=== PATIENT | female | born 1990 | race Caucasian/White ===

== ENCOUNTER 2017-12-27 05:06 | Inpatient (IN) | payer BC ==
[~2017-12-27] VITALS: Ht 162.6 cm; Wt 94.8 kg
[2017-12-27] VITALS (10 sets, daily range): BP systolic 106–114; BP diastolic 54–72; PULSE 72–93; RESP 16–20; TEMP 98–98.5; O2SAT 97–100
[2017-12-27] MEDS ORDERED: PREN1PAK9 (05:40)
[2017-12-27] MEDS ORDERED: FERR325T18 PO (05:42)
[2017-12-27] MEDS ORDERED: PROZ20CA11 PO (05:42)
[2017-12-27] MEDS ORDERED: LACTATED RINGER'S 1000 ML IV ONE (05:45)
[2017-12-27] MEDS ORDERED: ceFAZolin 2 GM PREMIX 50 ML IV SCH (05:45)
[2017-12-27] MEDS ORDERED: CITRIC ACID-SODIUM CITRATE LIQ 30 ML UDC PO SCH (05:45)
[2017-12-27 06:15] LABS: AUTOMATED NEUTROPHIL # 6.4 TH/MM3 (1.8-7.7); BASOPHIL # 0.1 TH/MM3 (0-0.2); BASOPHIL % 0.9 % (0.0-2.0); EOSINOPHIL # 0.2 TH/MM3 (0-0.4); EOSINOPHIL % 1.9 % (0.0-4.0); HEMATOCRIT 28.7 % (35.0-46.0); HEMOGLOBIN 9.3 GM/DL (11.6-15.3); LYMPH % 26.8 % (9.0-44.0); LYMPHOCYTE # 2.7 TH/MM3 (1.0-4.8); MEAN CELL VOLUME 78.2 FL (80.0-100.0); MEAN CORPUSCULAR HEMOGLOBIN 25.3 PG (27.0-34.0); MEAN CORPUSCULAR HGB CONC 32.4 % (32.0-36.0); MEAN PLATELET VOLUME 9.9 FL (7.0-11.0); MONOCYTE # 0.8 TH/MM3 (0-0.9); NEUT % 62.4 % (16.0-70.0); PLATELET COUNT 191 TH/MM3 (150-450); RED BLOOD COUNT 3.67 MIL/MM3 (4.00-5.30); RED CELL DISTRIBUTION WIDTH 16.8 % (11.6-17.2); WHITE BLOOD COUNT 10.2 TH/MM3 (4.0-11.0)
[2017-12-27 06:16] LABS: BACTERIA, URINE RARE /hpf; BILIRUBIN, URINE NEG (NEG); BLOOD, URINE NEG (NEG); GLUCOSE,URINE NEG (NEG); KETONE, URINE 10 mg/dL (NEG); MUCUS URINE FEW /lpf (OCC); NITRITE,URINE NEG (NEG); PH, URINE 6.5 (5.0-8.5); SQUAMOUS EPITHELIAL CELL URINE 2 /hpf (0-5); TRANSITIONAL EPI CELLS, URINE <1 /hpf; URINE COLOR YELLOW (YELLW/STRAW); URINE LEUKOCYTE ESTERASE TRACE (NEG)
[2017-12-27] MEDS: LACTATED RINGER'S 1000 ML IV SCH ×2 (06:54→19:05)
[2017-12-27] MEDS ORDERED: ACETAMINOPHEN 1000 MG/100 ML 100 ML IV ONE (07:30)
[2017-12-27] MEDS ORDERED: SODIUM CHLORIDE 0.9% FLUSH 10 ML FLUSH IV FLUSH PRN (08:00)
[2017-12-27] MEDS ORDERED: KETOROLAC TROMETHAMINE 60 MG/2 ML (IM) VIAL IM PRN (08:00)
[2017-12-27] MEDS ORDERED: IBUPROFEN 600 MG TAB PO PRN (08:00)
[2017-12-27] MEDS ORDERED: OXYTOCIN 30 UNITS-500ML PREMIX 500 ML IV ONE (08:00)
[2017-12-27] MEDS ORDERED: ONDANSETRON HCL 4 MG/2 ML VIAL IV PUSH PRN (08:00)
[2017-12-27] MEDS ORDERED: SIMETHICONE 80 MG CHEWABLE TAB PO PRN (08:00)
[2017-12-27] MEDS ORDERED: ONDANSETRON ODT 4 MG TAB PO PRN (08:30)
[2017-12-27] MEDS: SODIUM CHLORIDE 0.9% FLUSH 10 ML FLUSH IV FLUSH SCH ×2 (09:00→20:16)
[2017-12-27] MEDS ORDERED: diphenhydrAMINE HCL 50 MG/ML VIAL ONE (09:12)
[2017-12-27] MEDS ORDERED: EPIDURAL-DIPHENHYDRAMINE HCL 50 MG/ML VIAL IV PUSH PRN (10:00)
[2017-12-27] MEDS ORDERED: EPIDURAL-DO NOT ADMINISTER ANTICOAGULANTS PRN (10:00)
[2017-12-27] MEDS ORDERED: EPIDURAL-NO SYSTEMIC NARCOTICS PRN (10:00)
[2017-12-27] MEDS ORDERED: EPIDURAL-NALOXONE HCL 0.4 MG/ML AMP IV PUSH PRN (10:00)
[2017-12-27] MEDS: oxyCODONE/ACETAMINOPHEN 5 MG/325 MG TAB PO PRN ×3 (12:20→21:32)
[2017-12-27] MEDS ORDERED: LACTATED RINGER'S 1000 ML INJ 1,000 ML IV SCH (12:46)
[2017-12-27] MEDS ORDERED: OXYTOCIN 30 UNITS-500ML PREMIX 500 ML IV PRN (13:00)
[2017-12-27] MEDS: METHYLERGONOVINE MALEATE 0.2 MG/ML VIAL IM SCH ×2 (14:53→15:30)
[2017-12-27] MEDS: EPIDURAL-DIPHENHYDRAMINE HCL 50 MG CAP PO PRN (20:04)
[2017-12-28 00:04] VITALS: BP 106/55; PULSE 95; RESP 19; TEMP 98.2
[2017-12-28] MEDS: LACTATED RINGER'S 1000 ML IV SCH (00:08)
[2017-12-28] MEDS: oxyCODONE/ACETAMINOPHEN 5 MG/325 MG TAB PO PRN ×4 (01:04→14:44)
[2017-12-28 04:49] VITALS: BP 100/60; PULSE 76; RESP 18; TEMP 97.8
[2017-12-28] MEDS: EPIDURAL-DIPHENHYDRAMINE HCL 50 MG CAP PO PRN (04:52)
[2017-12-28 07:16] LABS: AUTOMATED NEUTROPHIL # 9.9 TH/MM3 (1.8-7.7); BASOPHIL # 0.1 TH/MM3 (0-0.2); BASOPHIL % 0.5 % (0.0-2.0); EOSINOPHIL # 0.2 TH/MM3 (0-0.4); EOSINOPHIL % 1.2 % (0.0-4.0); HEMATOCRIT 27.6 % (35.0-46.0); HEMOGLOBIN 8.7 GM/DL (11.6-15.3); LYMPH % 21.1 % (9.0-44.0); LYMPHOCYTE # 3.1 TH/MM3 (1.0-4.8); MEAN CELL VOLUME 80.7 FL (80.0-100.0); MEAN CORPUSCULAR HEMOGLOBIN 25.3 PG (27.0-34.0); MEAN CORPUSCULAR HGB CONC 31.4 % (32.0-36.0); MEAN PLATELET VOLUME 10.1 FL (7.0-11.0); MONO % 10.7 % (0.0-8.0); MONOCYTE # 1.6 TH/MM3 (0-0.9); NEUT % 66.5 % (16.0-70.0); PLATELET COUNT 184 TH/MM3 (150-450); RED BLOOD COUNT 3.42 MIL/MM3 (4.00-5.30); RED CELL DISTRIBUTION WIDTH 17.4 % (11.6-17.2); WHITE BLOOD COUNT 14.8 TH/MM3 (4.0-11.0)
[2017-12-28 08:00] VITALS: BP 109/60; PULSE 78; RESP 16; TEMP 98.2
[2017-12-28 08:11] VITALS: BP 109/60; PULSE 78; RESP 16; TEMP 98.2; O2SAT 100
--- NOTE | 2017-12-28 08:18 | HHI.OB ---
Subjective Post Operative Day: 1 Remarks POD # 1 s/p repeat c/s with BTL doing well, tolerating po, good pain control, ambulating well Objective Vitals/I&O Vital Signs Date Time Temp Pulse Resp B/P (MAP) Pulse Ox O2 Delivery O2 Flow Rate FiO2 12/28/17 08:11 98.2 78 16 109/60 (76) 100 12/28/17 04:49 97.8 76 18 100/60 (73) 12/28/17 00:04 98.2 95 19 106/55 (72) 12/27/17 20:00 98.3 84 18 113/72 (86) 12/27/17 18:48 97 12/27/17 18:43 80 110/72 (85) 12/27/17 16:32 98.5 72 20 114/69 (84) 12/27/17 14:18 86 16 106/54 (71) 12/27/17 14:18 98.2 12/27/17 09:38 98.0 86 18 108/55 (72) 100 12/27/17 09:06 107/58 (74) 12/27/17 09:06 82 18 99 12/27/17 08:52 100 12/27/17 08:48 93 18 107/56 (73) 12/27/17 08:46 98.4 Result Diagram: 12/28/17 0706 Objective Remarks GENERAL: Well-nourished, well-developed patient. CARDIOVASCULAR: Regular rate and rhythm without murmurs, gallops, or rubs. RESPIRATORY: Breath sounds equal bilaterally. No accessory muscle use. ABDOMEN/GI: Abdomen soft, non-tender, bowel sounds present. Incision: Clean, dry and intact. Fundus: Firm, non-tender at umbilicus. GENITOURINARY: Light to moderate bleeding. EXTREMITIES: No cyanosis or edema, non-tender, without signs of DVT. Medications and IVs Current Medications Medications (Trade) Dose Ordered Sig/Lanette Route Start Time Stop Time Status Last Admin Lactated Ringer's 1,000 ml @ 150 mls/hr Q6H40M IV 12/27/17 05:45 12/27/17 06:54 (Bicitra Liq) 30 ml SCOREBOARD OPERATOR PO 12/27/17 05:45 12/30/17 05:44 12/27/17 07:12 Cefazolin Sodium/ Dextrose 50 ml @ 100 mls/hr SCOREBOARD OPERATOR IV 12/27/17 05:45 12/30/17 05:44 12/27/17 07:12 Lactated Ringer's 1,000 ml @ 100 mls/hr Q10H IV 12/27/17 12:46 12/28/17 08:45 Oxytocin 500 ml @ 100 mls/hr UNSCH X1 PRN IV 12/27/17 13:00 12/28/17 12:59 (NS Flush) 2 ml BID IV FLUSH 12/27/17 09:00 (NS Flush) 2 ml UNSCH PRN IV FLUSH 12/27/17 08:00 12/27/17 23:39 (Mylicon Chew) 80 mg QID PRN PO 12/27/17 08:00 (Percocet 5-325 Mg) 1 tab Q4H PRN PO 12/27/17 08:00 12/27/17 21:32 (Percocet 5-325 Mg) 2 tab Q4H PRN PO 12/27/17 08:00 12/28/17 04:52 (M-M-R Ii Inj) 0.5 ml ONCE ONCE SQ 12/28/17 16:00 12/28/17 16:01 (Boostrix Inj) 0.5 ml ONCE ONCE IM 12/28/17 16:00 12/28/17 16:01 (Zofran Odt) 4 mg Q6H PRN PO 12/27/17 08:30 ([facility]) NO SYSTEMIC NARCOTICS TO BE GIVEN FO... UNSCH PRN .XX 12/27/17 10:00 12/28/17 09:59 (Narcan Inj) 0.4 mg UNSCH PRN IV PUSH 12/27/17 10:00 12/28/17 09:59 (Benadryl Inj) 25 mg Q6H PRN IV PUSH 12/27/17 10:00 12/28/17 09:59 (Benadryl) 50 mg Q6H PRN PO 12/27/17 10:00 12/28/17 09:59 12/28/17 04:52 ([facility]) ALL NURSING DEPARTMENTS UNSCH PRN .XX 12/27/17 10:00 12/28/17 09:59 Assessment/Plan Assessment and Plan POD # 1 s/p repeat c/s with BTL doing well, routine care, circ done this am Bonnie Cuevas MD December 28, 2017 08:18
--- NOTE | 2017-12-28 08:25 | MP ---
cc: Bonnie Cuevas MD DATE OF OPERATION: 12/27/2017 PREOPERATIVE DIAGNOSES: Intrauterine at 39+ weeks gestation with previous section x 2 and undesired fertility. POSTOPERATIVE DIAGNOSES: Intrauterine at 39+ weeks gestation with previous section x 2 and undesired fertility. PROCEDURE PERFORMED: Repeat low transverse section with bilateral tubal ligation. SURGEON: Bonnie Villafana MD. ANESTHESIA: Spinal. FINDINGS AT SURGERY: Included a viable male weighing 9 pounds 3 ounces with Apgars 8 and 9. Normal-appearing ovaries. Each of the tubes were densely adhered to the ovaries, so on the left side a fimbriectomy was done and on the right side, a partial salpingectomy was done. ESTIMATED BLOOD LOSS: 800 mL. COMPLICATIONS: None. PROCEDURE IN DETAIL: After proper consents were obtained, blood had been typed and screened. The patient was taken to the operating room where a spinal anesthetic was placed. She was then placed in the dorsal position. She was sterilely prepped and draped and a Coates catheter was placed. At this time, using a sharp knife, a revision of a prior Pfannenstiel skin incision was performed. This was carried down to the fascia using the Bovie cautery. The fascia was nicked in the midline and extended superolaterally on each side. We then sharply dissected the fascia off of the muscles. The peritoneum was identified, grasped with 2 hemostats and entered sharply with the Metzenbaum scissors. This incision was extended superiorly and inferiorly paying close attention to the bladder. A bladder blade was placed. Bladder flap was developed. Bladder blade was replaced. We had a transverse incision in the lower uterine segment. This was extended using the finger fracture technique. Rupture of membranes revealed clear fluid. Controlled delivery of the vertex. Nuchal cord x 1 reduced. Bulb suction to the oropharynx and the nares and the baby was then fully delivered. We had delayed cord clamping of 45 seconds. The cord was then clamped in between clamps and then cut in between and the was handed to the team in attendance. A viable male, 9 pounds 3 ounces with Apgars 8 and 9. At this time, cord blood sample was obtained. Placenta was removed. Uterus was exteriorized and wiped clean of clots and debris. At this time, it was noted that the right round ligament was adhered to the anterior abdominal wall. I closed the uterine incision using an 0 chromic suture, starting at each apex and meeting in the midline in a running interlocking fashion. Excellent hemostasis was noted. We then turned our attention to the right tube, which was adherent and the best way to do the tubal was to just do a partial salpingectomy. I came across the tube with a Waleska clamp. I placed a 0 Vicryl tie beneath that. I slashed that then placed a second tie beneath and cut off the tube. Good hemostasis was noted. On the left side, I did a fimbriectomy due to the dense adhesion of the tube to the ovary. I came across the fimbria and the distal portion of the tube with a Waleska clamp, clamping, cutting, and then placing 2-0 plain ties beneath that with excellent hemostasis. We then irrigated the abdominal pelvic cavity. We placed the uterus back into the cavity. Hemostasis was assured. We reapproximated the muscle using a #1 chromic suture x 2. We then closed the fascia using 0 Vicryl starting at each apex and meeting in the midline in a running fashion. Irrigation was performed of the subcutaneous. Hemostasis achieved with the Bovie cautery and the skin was closed with oliva. All sponge, lap, needle counts were correct x 3. MD JENNY Hill/MARK , 07:39 AM , 08:24 AM
[2017-12-28] MEDS ORDERED: DIPHTH/TETANUS/ACEL PERTUSSIS (BOOSTER) 0.5 ML VIAL/PFS IM ONE (16:00)
[2017-12-28] MEDS ORDERED: MEASLES, MUMPS, RUBELLA VACCINE 0.5 ML VIAL SQ ONE (16:00)
[2017-12-28 20:00] VITALS: BP 116/59; PULSE 68; RESP 18; TEMP 98.4
[2017-12-28] MEDS: DOCUSATE SODIUM 100 MG CAP PO SCH (23:45)
[2017-12-29] MEDS: IBUPROFEN 600 MG TAB PO PRN ×3 (08:23→23:27)
[2017-12-29] MEDS: DOCUSATE SODIUM 100 MG CAP PO SCH ×2 (08:23→23:27)
[2017-12-29] MEDS: SODIUM CHLORIDE 0.9% FLUSH 10 ML FLUSH IV FLUSH SCH (08:24)
[2017-12-29 08:25] VITALS: BP 104/47; PULSE 82; RESP 18; TEMP 98.2
[2017-12-29] MEDS: LACTATED RINGER'S 1000 ML IV SCH ×2 (11:47→17:56)
--- NOTE | 2017-12-29 12:25 | HHI.OB ---
Subjective Post Operative Day: 2 Remarks Pt doing well, good pain control, passing flatus, tolerating po Objective Vitals/I&O Vital Signs Date Time Temp Pulse Resp B/P (MAP) Pulse Ox O2 Delivery O2 Flow Rate FiO2 12/29/17 08:25 98.2 82 18 104/47 (66) 12/28/17 20:00 98.4 68 18 116/59 (78) Result Diagram: 12/28/17 0706 Objective Remarks GENERAL: Well-nourished, well-developed patient. CARDIOVASCULAR: Regular rate and rhythm without murmurs, gallops, or rubs. RESPIRATORY: Breath sounds equal bilaterally. No accessory muscle use. ABDOMEN/GI: Abdomen soft, non-tender, bowel sounds present. Incision: Clean, dry and intact. Fundus: Firm, non-tender at umbilicus. GENITOURINARY: Light to moderate bleeding. EXTREMITIES: No cyanosis or edema, non-tender, without signs of DVT. Medications and IVs Current Medications Medications (Trade) Dose Ordered Sig/[facility] Route Start Time Stop Time Status Last Admin Lactated Ringer's 1,000 ml @ 150 mls/hr Q6H40M IV 12/27/17 05:45 12/27/17 06:54 (Bicitra Liq) 30 ml SUPERVISOR COMPRESSED YEAST PO 12/27/17 05:45 12/30/17 05:44 12/27/17 07:12 Cefazolin Sodium/ Dextrose 50 ml @ 100 mls/hr SUPERVISOR COMPRESSED YEAST IV 12/27/17 05:45 12/30/17 05:44 12/27/17 07:12 (NS Flush) 2 ml BID IV FLUSH 12/27/17 09:00 12/29/17 08:24 (NS Flush) 2 ml UNSCH PRN IV FLUSH 12/27/17 08:00 12/27/17 23:39 (Mylicon Chew) 80 mg QID PRN PO 12/27/17 08:00 12/29/17 08:23 (Percocet 5-325 Mg) 1 tab Q4H PRN PO 12/27/17 08:00 12/28/17 14:44 (Percocet 5-325 Mg) 2 tab Q4H PRN PO 12/27/17 08:00 12/28/17 10:15 (Zofran Odt) 4 mg Q6H PRN PO 12/27/17 08:30 (Motrin) 600 mg Q6H PRN PO 12/28/17 19:45 12/29/17 08:23 (Colace) 100 mg BID PO 12/28/17 21:00 12/29/17 08:23 Assessment/Plan Assessment and Plan POD # 2 s/p repeat c/s with BTL doing well, routine care Bonnie Cuevas MD December 29, 2017 12:25
[2017-12-29] MEDS: oxyCODONE/ACETAMINOPHEN 5 MG/325 MG TAB PO PRN ×2 (13:06→23:28)
[2017-12-29 17:30] VITALS: BP 118/65; PULSE 80; RESP 16; TEMP 97.8
[2017-12-29] MEDS ORDERED: ACETAMIN 325 MG/BUTALBITAL 50 MG/CAFFEINE 40 MG TAB PO ONE (18:45)
[2017-12-29 20:00] VITALS: BP 119/69; PULSE 72; RESP 18; TEMP 98.2
[2017-12-30] MEDS: IBUPROFEN 600 MG TAB PO PRN (07:00)
[2017-12-30] MEDS: oxyCODONE/ACETAMINOPHEN 5 MG/325 MG TAB PO PRN (07:01)
[2017-12-30] MEDS: LACTATED RINGER'S 1000 ML IV SCH (07:05)
[2017-12-30] MEDS: DOCUSATE SODIUM 100 MG CAP PO SCH (09:36)
[2017-12-30] MEDS: SODIUM CHLORIDE 0.9% FLUSH 10 ML FLUSH IV FLUSH SCH (09:37)
[2017-12-30] MEDS ORDERED: OXYC1TAB63 PO (12:41)
--- NOTE | 2017-12-30 12:43 | HHI.DCPOC ---
Discharge Care Plan Your Health Problems Are: delivery Report Symptoms to Your Doctor -Temperature above 100.5 degrees -Redness, of incision or excessive or foul smelling drainage -Unusual pain or calf pain -Increased vaginal bleeding -Painful or difficulty urinating -Feelings of extreme sadness or anxiety after 2 weeks Goals to Promote Your Health * To prevent worsening of your condition and complications * To maintain your health at the optimal level Directions to Meet Your Goals Take your medications as prescribed Follow your dietary instruction Follow activity as directed Ensure plenty of rest for recovery Drink fluids for hydration Keep your appointments as scheduled Take your immunizations and boosters as scheduled If your symptoms worsen call your PCP, if no PCP go to Urgent Care Center or Emergency Room Smoking is Dangerous to Your Health. Avoid second hand smoke Call the 24-hour crisis hotline for domestic abuse at Bonnie Cuevas MD December 30, 2017 12:43
--- NOTE | 2017-12-30 12:43 | HHI.DS ---
Admission Date December 27, 2017 at 05:06 Admitting Diagnosis Diagnosis: : Repeat : Male Pt Condition on Discharge: Good Discharge Disposition: Discharge Home Discharge Instructions Diet Instructions: As Tolerated, No Restrictions Activities You Can Perform: Pelvic Rest Bonnie Cuevas MD December 30, 2017 12:43
== END 2017-12-30 13:49 | disposition home or self-care (01) | DRG 766 ==
LOC: H2EB 05:06 → H1EA 09:58
PROVIDERS: ADMIT Obstetrics & Gynecology; ATTEND Obstetrics & Gynecology
PROC: 10D00Z1 Extraction of Products of Conception, Low, Open Approach (ICD-10-PCS; principal; 2017-12-27)
PROC: 0UB70ZZ Excision of Bilateral Fallopian Tubes, Open Approach (ICD-10-PCS; 2017-12-27)
DX: O34.211 Maternal care for low transverse scar from previous cesarean delivery (principal); N99.4 Postprocedural pelvic peritoneal adhesions; O69.81X0 Labor and delivery complicated by cord around neck, without compression, not applicable or unspecified; Z30.2 Encounter for sterilization; Z37.0 Single live birth; Z3A.39 39 weeks gestation of pregnancy
CPT/HCPCS: 59025; 80307; 81001; 85025; 86850; 86900; 86901; 88302; 90715; J0131; J0690; J1200; J2210; J2590; J3010; J7120; Q0163